=== PATIENT | female | born 2000 | race Caucasian/White ===

== ENCOUNTER 2022-07-18 18:36 | Emergency (ER) | payer BC ==
[~2022-07-18] VITALS: Ht 157.5 cm; Wt 52.2 kg
[2022-07-18] MEDS ORDERED: LIDOCAINE 2%-EPI 1:100,000 20 ML VIAL IJ ONE (19:15)
[2022-07-18] MEDS ORDERED: LIDOCAINE 1%-EPI 1:100,000 20 ML VIAL ONE (19:19)
--- NOTE | 2022-07-18 19:25 | NUR ---
Received report from Gay MYERS.
[2022-07-18] MEDS ORDERED: SULF1TAB48 PO (19:40)
[2022-07-18] MEDS ORDERED: OXYC-128 PO (19:40)
[2022-07-18] MEDS ORDERED: SULFAMETH/TRIMETH 800/160 MG TABLET PO ONE (19:45)
[2022-07-18] MEDS ORDERED: SULFAMETH/TRIMETH 800/160 MG TABLET ONE ×2 (19:52→19:56)
--- NOTE | 2022-07-18 19:57 | NUR ---
Patient discharged to home in stable condition. A/O x4. NAD noted. Ambulatory with steady gait. All belongings with patient. Written and verbal after care instructions given. Patient verbalizes understanding of instructions. Stressed follow up or return to ER for worsening s/s.
[2022-07-18 20:06] VITALS: BP 130/77
== END 2022-07-18 19:57 | disposition home or self-care (01) ==
LOC: ER 18:45
DX: L02.31 Cutaneous abscess of buttock (principal); B95.8 Unspecified staphylococcus as the cause of diseases classified elsewhere
CPT/HCPCS: 10160; 99283; J3490; A4663